=== PATIENT | female | born 1995 | race Caucasian/White ===

== ENCOUNTER 2018-12-10 11:19 | Outpatient (REF) | payer OTHER, SELFPAY ==
--- NOTE | 2018-12-10 10:30 | PAPFT_PTH ---
PATIENT: Loni Beal LOC: [facility] U#:[id number] AGE/SX: 23/F ROOM: RE12/10/[address]: SAM Noel : 1995 BED: DIS: 12/10/2018 SPEC #: [id number] RECD: 12/10/18 13:04 STATUS: YUDY REChip #: [id number] RODNEY: 12/10/18 10:[address]: Sara Ashley DEPT: [facility] Cytology RECD BY: Isabella Bob Tissues: 1 - CX/ENDOCX FOR PAP SMEARS Procedures: PAP THIN PREP/[facility] Screening Comments: [id number] (CHLAMYDIA/GC)
[2018-12-11 13:02] LABS: Chlamydia Result Negative; GC Result Negative; Specimen Description SEE COMMENTS
== END 2018-12-10 11:39 ==
LOC: LBN 11:19
PROVIDERS: PCP Nurse Practitioner Family; Visit Provider Nurse Practitioner Family
DX: Z11.3 Encounter for screening for infections with a predominantly sexual mode of transmission (principal); Z12.4 Encounter for screening for malignant neoplasm of cervix; Z11.51 Encounter for screening for human papillomavirus (HPV)
CPT/HCPCS: 87491; 87591; 88142

== ENCOUNTER 2020-04-28 08:08 | Outpatient (CLI) | payer OTHER, SELFPAY ==
[2020-05-01 00:06] LABS: SARS-CoV-2 RNA Undetected (Undetected); SARS-CoV-2 Specimen Source Nasopharynx
== END 2020-04-28 08:28 ==
PROVIDERS: PCP Nurse Practitioner Family; Visit Provider Nurse Practitioner Family
DX: Z20.828 Contact with and (suspected) exposure to other viral communicable diseases (principal)
CPT/HCPCS: U0003

== ENCOUNTER 2021-04-04 10:25 | Outpatient (CLI) | payer OTHER, SELFPAY ==
[2021-04-05 11:31] LABS: COVID-19 RT-PCR UVMMC Result Negative (Negative)
== END 2021-04-04 10:26 | disposition home or self-care (01) ==
PROVIDERS: PCP Nurse Practitioner Family; Visit Provider Nurse Practitioner Family
DX: Z20.822 Contact with and (suspected) exposure to COVID-19 (principal); J06.9 Acute upper respiratory infection, unspecified
CPT/HCPCS: U0003

== ENCOUNTER 2022-06-27 02:41 | Outpatient (CLI) | payer OTHER, SELFPAY ==
[2022-06-27 12:38] LABS: Anion Gap 9.4 mmol/L (3-11); BUN 15 mg/dL (7-18); CO2 26.6 mmol/L (21.0-32.0); CREATININE 0.8 mg/dL (0.55-1.02); Calcium 9.1 mg/dL (8.5-10.1); Calculated LDL 94 mg/dL (<100); Chloride 104 mmol/L (98-107); Cholesterol 200 mg/dL (<200); Glucose 111 mg/dL (74-106); HDL Cholesterol 97 mg/dL (40-60); Potassium 3.9 mmol/L (3.5-5.1); Sodium 140 mmol/L (136-145); Triglyceride 45 mg/dL (<150)
== END 2022-06-27 02:42 | disposition home or self-care (01) ==
LOC: LOS 02:41
PROVIDERS: PCP Nurse Practitioner Family; Visit Provider Nurse Practitioner Family
DX: Z00.00 Encounter for general adult medical examination without abnormal findings (principal)
CPT/HCPCS: 36415; 80048; 80061

== ENCOUNTER 2022-07-17 11:38 | Outpatient (REF) | payer OTHER, SELFPAY ==
--- NOTE | 2022-07-17 14:30 | PAPFT_PTH ---
PATIENT: Loni Beal LOC: [facility] U#:[id number] AGE/SX: 26/F ROOM: RE07/17/[address]: SAM Noel : 1995 BED: DIS: 07/17/2022 SPEC #: [id number] RECD: 07/18/22 13:10 STATUS: YUDY REQ #: [id number] RODNEY: 07/17/22 14:[address]: Sara Ashley DEPT: [facility] Cytology RECD BY: Isabella Bob Tissues: 1 - CX/ENDOCX FOR PAP SMEARS Procedures: PAP THIN PREP/[facility] Screening Comments: [id number] (CHLAMYDIA/GC)
[2022-07-19 23:52] LABS: Chlamydia Result Negative (Negative); GC Result Negative (Negative)
== END 2022-07-17 11:39 | disposition home or self-care (01) ==
LOC: LBN 11:38
PROVIDERS: PCP Nurse Practitioner Family; Visit Provider Nurse Practitioner Family
DX: Z12.4 Encounter for screening for malignant neoplasm of cervix (principal); Z11.3 Encounter for screening for infections with a predominantly sexual mode of transmission
CPT/HCPCS: 87491; 87591; 88142